=== PATIENT | female | born 1945 | race Caucasian/White ===

== ENCOUNTER 2018-12-08 11:51 | Inpatient (IN) | payer MEDICARE, OTHER, SELFPAY ==
[2018-11-26 12:33] VITALS: BMI 37.4
[2018-12-08] VITALS (12 sets, daily range): BP systolic 103–139; BP diastolic 57–78; PULSE 56–75; RESP 10–17; TEMP 36.2–36.7; O2SAT 90–100; BMI 37.4
--- NOTE | 2018-12-08 06:00 | DI.RAD.S_ITS ---
PROCEDURE: XR PELVIS 1-2V INDICATIONS: post operative total left hip TECHNIQUE: 1 view of the lower pelvis acquired. COMPARISON: None. FINDINGS: Bones: Patient is status post left hip arthroplasty, with hardware components in expected positions. The hip joint appears congruent. The visualized bony structures appear intact. Soft tissues: Overlying postoperative changes are noted. No suspicious soft tissue densities. IMPRESSION: Expected postsurgical change from left hip arthroplasty. Dictated by: Roxana Hernández MD, PhD on 12/08/2018 at 17:18 Approved by: Roxana Hernández MD, PhD on 12/08/2018 at 17:19
[2018-12-08] MEDS: PREGABALIN 75 MG CAPSULE PO (13:33)
[2018-12-08] MEDS: ACETAMINOPHEN 325 MG TABLET 975 MG PO (13:33)
--- NOTE | 2018-12-08 14:47 | PM.PREOP ---
Pre-operative Note Interval Note History & Physical reviewed/Exam performed by Physician: Yes Changes to H&P: No
[2018-12-08] MEDS: CLINDAMYCIN 900 MG/50 ML PIGGYBACK 50 MG IV ×2 (15:12→22:37)
--- NOTE | 2018-12-08 16:18 | SUR.OPER ---
Lateral on padded OR bed. Gel axillary roll. Arms secured on padded armboard with pillow supporting top arm. Padded hip positioner braces x4 - anterior and posterior chest and pelvis. Additional gel pad used anterior pelvis. Gel pad under bottom leg from knee to foot and secured with tape over sheet.
[2018-12-08] MEDS: ROPIVACAINE 0.5% PF 5 MG/ML 20ML AMP 60 ML INJ (16:28)
[2018-12-08] MEDS: KETOROLAC 30 MG/ML VIAL IV (16:29)
[2018-12-08] MEDS: MORPHINE 4 MG/ML INJ INJ (16:29)
[2018-12-08] MEDS: LACTATED RINGERS 1,000 ML 42 ML IV (16:31)
--- NOTE | 2018-12-08 16:45 | PM.OP.1 ---
Operative Date/Time/Diagnoses Date of procedure: 12/08/18 Time of procedure: 16:45 Pre-op diagnosis: Left hip degenerative joint disease Post-op diagnosis: same Procedure & Clinicians Procedure: Left total hip arthroplasty (CPT code 07507 with assistant professor of chemistry) Same procedure as scheduled: Yes Indications: Patient is an 72-year-old female with severe left hip DJD. The patient has pain with activities and at rest, limited ambulation and activity tolerance, difficulties with ADLs, and failure of conservative treatment. We have discussed the nature of condition, treatment options, risks and benefits, and patient elects to proceed with total hip arthroplasty and gives informed consent. Surgeon: Lazaro Archibald Log Chipper: Maksim Nicholson Anesthesia Type: General and Spinal Operative Notes Closure Type: primary Specimen(s): none sent Prosthetic devices, grafts, tissues, transplants, or devices: Acetabulum: Braswell and Nephew R3 acetabular component size 48 mm Femoral component: Braswell [employer] Nephew Anthology stem size 5 with standard offset Femoral head: 32 mm + 0 cobalt chrome Estimated Blood Loss (mL): 150 Blood products transfused: none Procedure in detail: After satisfaction induction of anesthetic, and administration of IV antibiotics, the patient was positioned in the lateral decubitus position with all bony prominences well padded and pelvic position secured using a hip power plant installer positioning device. Left hip and lower extremity prepped and draped in the usual sterile fashion, 1st dose of intravenous tranexamic acid was administered, then a longitudinal incision was created centered over the greater trochanter and carried sharply through the skin and subcutaneous tissues down to the fascia trev which was divided longitudinally and retracted with a Charnley retractor. External rotators visualize, cut, tagged, and retracted posteriorly, then the capsule was cut in a T-type fashion with the corners tagged and retracted. Hip was dislocated and femoral neck cut made according to preoperative templating. Acetabular retractors then placed, and the acetabular labrum and osteophytes were excised. The acetabulum was then sequentially reamed to 47 mm with an excellent circumferential ream and fit with the trial. The trial component was removed and a permanent size 48 mm Braswell and Nephew R3 acetabular component was selected, positioned, and impacted with satisfactory position and fixation achieved. Permanent liner was then inserted with the elevated lip directed posteriorly. Soft tissue then removed off the lateral femoral neck in the lateral neck was entered using a box osteotome. T-handled reamers placed down the canal followed by sequential broaching to 5 with the final broach left in place for trial reduction which demonstrated excellent leg length, range of motion, and stability characteristics with a 32 mm +0 trial ball. The trial and broach were removed, and a permanent size 5 Braswell and Nephew Anthology stem was selected and inserted with excellent position and fixation achieved. Another trial reduction yielded the above characteristics so the trial ball was exchanged for a permanent 32 mm +0 cobalt chrome ball. The hip was irrigated and reduced and excellent leg length range of motion and stability characteristics were achieved and maintained. Periarticular tissues were infiltrated with ropivacaine, Toradol, and morphine. The hip was copiously irrigated, and the capsule repaired with #2 Ethibond, and the piriformis was repaired back to the greater trochanter with the same. Fascia trev closed with interrupted #1 Ethibond sutures, and the subcutaneous tissues were closed in 2 layers of 0 Vicryl and 2 0 Vicryl. Skin was closed with laurie and sterile dressings applied. Second dose of tranexamic acid was administered intravenously, and the anesthetic was terminated. Condition: stable Disposition: PACU Plan for aftercare: Patient will be admitted to the acute care phan, and anticipate discharge on postop day 1 or 2 with follow-up in office in 10-14 days. Outpatient physical therapy will be arranged and patient will continue to observe posterior hip precautions. Patient will continue use of postoperative Lovenox for 10 days postop.
--- NOTE | 2018-12-08 16:49 | P.OP_ITS ---
Operative Date/Time/Diagnoses Date of procedure: 12/08/18 Time of procedure: 16:45 Pre-op diagnosis: Left hip degenerative joint disease Post-op diagnosis: same Procedure & Clinicians Procedure: Left total hip arthroplasty (CPT code 20035 with video library assistant) Same procedure as scheduled: Yes Indications: Patient is an 72-year-old female with severe left hip DJD. The patient has pain with activities and at rest, limited ambulation and activity tolerance, difficulties with ADLs, and failure of conservative treatment. We have discussed the nature of condition, treatment options, risks and benefits, and patient elects to proceed with total hip arthroplasty and gives informed consent. Surgeon: Lazaro Archibald Cylinder Devalver: Maksim Nicholson Anesthesia Type: General and Spinal Operative Notes Closure Type: primary Specimen(s): none sent Prosthetic devices, grafts, tissues, transplants, or devices: Acetabulum: Braswell and Nephew R3 acetabular component size 48 mm Femoral component: Braswell and Nephew Anthology stem size 5 with standard offset Femoral head: 32 mm + 0 cobalt chrome Estimated Blood Loss (mL): 150 Blood products transfused: none Procedure in detail: After satisfaction induction of anesthetic, and administration of IV antibiotics, the patient was positioned in the lateral decubitus position with all bony prominences well padded and pelvic position secured using a hip buckler and lacer positioning device. Left hip and lower extremity prepped and draped in the usual sterile fashion, 1st dose of intravenous tranexamic acid was administered, then a longitudinal incision was created centered over the greater trochanter and carried sharply through the skin and subcutaneous tissues down to the fascia trev which was divided longitudinally and retracted with a Charnley retractor. External rotators visualize, cut, tagged, and retracted posteriorly, then the capsule was cut in a T-type fashion with the corners tagged and retracted. Hip was dislocated and femoral neck cut made according to preoperative templating. Acetabular retractors then placed, and the acetabular labrum and osteophytes were excised. The acetabulum was then sequentially reamed to 47 mm with an excellent circumferential ream and fit with the trial. The trial component was removed and a permanent size 48 mm Braswell and Nephew R3 acetabular component was selected, positioned, and impacted with satisfactory position and fixation achieved. Permanent liner was then inserted with the elevated lip directed posteriorly. Soft tissue then removed off the lateral femoral neck in the lateral neck was entered using a box osteotome. T- handled reamers placed down the canal followed by sequential broaching to 5 with the final broach left in place for trial reduction which demonstrated excellent leg length, range of motion, and stability characteristics with a 32 mm +0 trial ball. The trial and broach were removed, and a permanent size 5 Braswell and Nephew Anthology stem was selected and inserted with excellent position and fixation achieved. Another trial reduction yielded the above characteristics so the trial ball was exchanged for a permanent 32 mm +0 cobalt chrome ball. The hip was irrigated and reduced and excellent leg length range of motion and stability characteristics were achieved and maintained. Periarticular tissues were infiltrated with ropivacaine, Toradol, and morphine. The hip was copiously irrigated, and the capsule repaired with #2 Ethibond, and the piriformis was repaired back to the greater trochanter with the same. Fascia trev closed with interrupted #1 Ethibond sutures, and the subcutaneous tissues were closed in 2 layers of 0 Vicryl and 2 0 Vicryl. Skin was closed with laurie and sterile dressings applied. Second dose of tranexamic acid was administered intravenously, and the anesthetic was terminated. Condition: stable Disposition: PACU Plan for aftercare: Patient will be admitted to the acute care phan, and anticipate discharge on postop day 1 or 2 with follow-up in office in 10-14 days. Outpatient physical therapy will be arranged and patient will continue to observe posterior hip precautions. Patient will continue use of postoperative Lovenox for 10 days postop.
[2018-12-08] MEDS: LACTATED RINGERS 1,000 ML 125 ML IV (18:40)
[2018-12-08] MEDS: DULOXETINE 30 MG CAPSULE PO (21:32)
[2018-12-08] MEDS: diphenhydrAMINE 25 MG TABLET PO (22:01)
--- NOTE | 2018-12-08 22:25 | PC.NURSE ---
KEL[facility] Shift pt arrived to floor at 1715. Denied pain all shift. O2 sat would drop to low 80's when sleeping, so we placed pt's CPAP on and o2 stats are mid-high 90's. pt has been AO and pleasant all shift. Receptive to care. Utilizing IS and deep breathing. Patient is SWIFTPATH and has had a back and knee surgery prior and denies anxiety or questions. was at bedside and has since left (Lives in [facility]). Called Dr. Richey to request Benadryl for generalized moderate itching. Patient up 2PA to BSC, voided 60ml, post-void bladder scan shows a max of 70ml remaining. Patient still denying pain. LR infusing at 125ml/hr, tolerating jello, crackers, and water.
--- NOTE | 2018-12-09 01:03 | PC.NURSE ---
2300- POD#0 total hip on L side, posterior approach. Bulky dressing in place, CDI, pulses palpable. Pt denies pain at this time; able to move toes. Moving in room 1PA w/ FWW. Pt uses a CPAP at night, needs to be reminded to keep this in place as his O2 sats drop to 88% without mask in place. LR running as ordered; AC/HS BG checks. 0200- New bag of NS hung, dressing CDI, pulses intact, pt denies pain. 0500- Pt up to BSC w/ 100 mL or urine out. Post void bladder scan completed, showed a max of 170mL. Will cont to monitor. 0630- Will cont IV fluids due to dec urine output.
[2018-12-09 01:59] VITALS: BP 121/61; PULSE 74; RESP 16; TEMP 36.7; O2SAT 94
[2018-12-09] MEDS: LACTATED RINGERS 1,000 ML 125 ML IV (03:39)
[2018-12-09 05:13] VITALS: BP 112/54; PULSE 68; RESP 16; TEMP 36.6; O2SAT 93
[2018-12-09 06:22] LABS: Hematocrit 31.7 % (36-46); Hemoglobin 10.7 g/dL (12.0-16.0)
[2018-12-09 07:45] VITALS: BP 115/56; PULSE 75; RESP 16; TEMP 36.9; O2SAT 94
[2018-12-09] MEDS: METOPROLOL ER 25 MG TABLET PO (09:02)
[2018-12-09] MEDS: METFORMIN XR 500 MG TABLET PO (09:02)
[2018-12-09] MEDS: DULOXETINE 30 MG CAPSULE PO (09:02)
[2018-12-09] MEDS: ENOXAPARIN 40 MG/0.4 ML SYRINGE SUBCUT (09:02)
[2018-12-09] MEDS: HYDROCODONE/ACET 5/325 TABLET 1 TAB PO ×2 (09:12→13:24)
--- NOTE | 2018-12-09 09:17 | PM.DS.1 ---
History of Present Illness Date Patient Seen: 12/09/18 Time Patient Seen: 09:18 Chief complaint: [id number] Left Total Hip Arthroplasty Narrative: Hospital day 2, postop day 1 following left posterior total hip arthroplasty by Dr. Archibald. Patient is a [facility] patient. doing well at this time. has not used any pain medication. She has not had physical therapy yet. She is scheduled to go to [facility] and [place]. She does have postoperative pain prescriptions at home. Discharge Providers Date of admission: 12/08/18 11:51 Discharge Date: 12/09/18 Primary care physician: Magdaleno Salguero MD Consults: 12/08/18 17:30 Consult to Discharge Planning Routine Comment: Consult to Physical Therapy Evaluate & Treat Comment: Physician Instructions: post op ANGEL protocol Consult to Respiratory Therapy Evaluate & Treat Comment: Physician Instructions: Evaluate and treat 12/08/18 18:32 Consult to Pastoral Services Routine Comment: pt is church Discharge provider: Alex León PA-C Summary Discharge Diagnosis: Status post left posterior total hip arthroplasty Hospital Course: Patient brought to hospital on 12/08/2018 for above-noted surgery. She remained stable postoperatively. Progressed with physical therapy. Ready for discharge home on postop day 1. Status at Discharge Cognitive/behavioral status at discharge: oriented Functional status at discharge: uses cane/walker Overall status at discharge: patient is progressing back to baseline Time Spent with Patient Less than 30 minutes Exam Vital Signs (past 8 hours): - 12/09/18 01:59 12/09/18 05:13 12/09/18 07:45 Temperature 98.0 F 97.9 F 98.4 F Pulse Rate 74 68 75 Respiratory Rate 16 16 16 Blood Pressure 121/61 112/54 L 115/56 L Pulse Oximetry 94 93 94 Oxygen Delivery Method CPAP Oxygen Flow Rate 0 Narrative Exam Narrative: Alert, oriented no acute distress sitting in chair. Legs. Bulky dressing to the left posterior hip is dry without drainage or inflammation. No calf pain or swelling. Pulses symmetrical. Objective Labs Result Diagrams: 12/09/18 05:56 Labs: Laboratory Results - last 24 hr 12/09/18 05:56 Hgb 10.7 L Hct 31.7 L Discharge Plan Discharge Plan Patient Disposition: Home Discharge comment: Discharge home today after cleared by PT. Change dressing to left hip to a CovRsite dressing. patient will use posterior total hip arthroplasty precautions x6 weeks postop. Patient will be on Lovenox injection for the 1st 10 days and then restart Eliquis. Discharge Med Rec/Prescriptions Prescriptions: New enoxaparin [Lovenox] 40 mg/0.4 mL Syringe 40 mg subcut DAILY Qty: 9 RF: 0 Continued triamterene-hydrochlorothiazid 37.5-25 mg Capsule 2 cap PO DAILY RF: 0 pramipexole 0.5 mg Tablet 0.5 mg PO BEDTIME RF: 0 metoprolol succinate 25 mg Tablet Extended Release 24 Hr 25 mg PO QAM RF: 0 duloxetine 30 mg Capsule,Delayed Release(Dr/Ec) 30 mg PO BID RF: 0 clobetasol 0.05 % Cream 1 applic TOPICAL SEEINSTR RF: 0 omeprazole 40 mg Capsule,Delayed Release(Dr/Ec) 40 mg PO DAILY RF: 0 metformin 500 mg Tablet Extended Release 24 Hr 500 mg PO QAM RF: 0 Discontinued Eliquis 5 mg Tablet 5 mg PO BID RF: 0 Follow up/Referrals: Magdaleno Salguero MD [Primary Care Provider] - Provider Discharge Instructions Diet: Diet as Tolerated Activity: Ambulate as tolerated. Use walker as needed. posterior total hip arthroplasty protocol x6 weeks postop. Skin/Wound/Dressing Care Report to your healthcare provider any signs of infection, such as:: chills, fever, night sweats, increased pain, unusual drainage and unusual redness Dressing: Keep CovRsite dressing in place until postop visit. Visit Report/Discharge Packet Instructions: DI for Hip Replacement Discharge Data Primary Care Provider: Magdaleno Salguero Attending Provider: Lazaro Archibald Admit Date/Time: 12/08/18 11:51
--- NOTE | 2018-12-09 10:15 | PT.IIE ---
Current Diagnoses Unilateral primary osteoarthritis, left hip (12/08/18) Surgery Performed Operation Date: 12/08/18 14:15 Actual Procedures p Total Hip Arthroplasty(Left) - Lazaro Archibald MD Surgical History (Last Updated 11/26/18 @ 13:15 by Gay Rodarte RN) History of arthroplasty of left shoulder (Acute) History of arthroplasty of right knee (Acute) History of lumbar spinal fusion (Acute ~08/2015) History of meniscectomy of left knee (Acute ~2002) Hx of cholecystectomy (Acute) Hx of toe surgery (Acute ~2017) Hx of tonsillectomy (Acute) Status post bilateral cataract extraction (Acute) Status post correction of deviated nasal septum (Acute) Medical History (Last Updated 11/26/18 @ 13:22 by Gay Rodarte RN) Anemia (Acute) Anxiety (Acute) Arthritis (Acute) Asthma (Acute) Chronic back pain (Acute) DJD (degenerative joint disease) (Acute) Depression (Acute) Diabetes (Acute ~2016) Eczema (Acute) Edema (Acute) GERD (gastroesophageal reflux disease) (Acute) HTN (hypertension) (Acute) Heart murmur (Acute) Hiatal hernia (Acute) History of cardioversion (Acute ~2017) Lichen sclerosus (Acute) Multiple lipomas (Acute) Paroxysmal atrial fibrillation (Acute) Psoriasis (Acute) RLS (restless legs syndrome) (Acute) Sleep apnea with use of continuous positive airway pressure (CPAP) (Acute) Physical Therapy Inpatient Evaluation/Re-Eval M1 PT/OT-IP Prior Functional Status Start: 12/09/18 11:20 Freq: NEEDED Status: Active Protocol: Document 12/09/18 10:15 AB (Rec: 12/09/18 11:33 AB [email or web address]) Medical Review Prior Functional Status Medical History Reviewed Yes Communication able to make needs known Mobility and Gait pt stated that she is mod I with all mobilities; uses FWW/ SPC depending on pain indoors; stated that she does not go out of the house often but she does, she uses a SPC Social History Household Members spouse Living Arrangements House Number of Floors (Floors) One Floor Home Environment Standard Height Toilet Walk in Shower Tub/Shower Home Equipment Front Wheel Walker Straight Cane Raised Toilet Seat Without Armrests Employment Status Retired M2 PT-IP Current Condition Start: 12/09/18 11:20 Freq: NEEDED Status: Active Protocol: Document 12/09/18 10:15 AB (Rec: 12/09/18 11:33 AB [email or web address]) Physical Therapy Current Condition Current Condition Evaluation Date 12/09/18 Treatment Diagnosis s/p L ANGEL posterior approach; difficulty in walking Onset Date 12/08/18 Precautions Posterior Hip Precautions No Hip Flexion > 90 degrees No Hip Internal Rotation No Hip Adduction Weight Bearing Status Weight Bearing Status Weight Bear as Tolerated M3 PT-IP Subjective Start: 12/09/18 11:20 Freq: NEEDED Status: Active Protocol: Document 12/09/18 10:15 AB (Rec: 12/09/18 11:33 AB [email or web address]) Subjective Physical Therapy Visit Type Type Initial Evaluation Visit Start Time 10:15 Visit Stop Time 11:15 Total Visit Minutes 60 Number of CAN CAPPER Visits 0 Physical Therapy Visit Comments Patient Comments pt agreeable to do PT Therapy Pain Assessment Pain When Pain Assessed At Rest Pain Present Pain Present Pain Reported Location Left Hip Intensity 4 Scale Used Numeric (1 - 10) Pain Management Techniques Apply Cold Re-positioning Timing of Activity with Medications M4 PT-IP Mobility and Gait Start: 12/09/18 11:20 Freq: NEEDED Status: Active Protocol: Document 12/09/18 10:15 AB (Rec: 12/09/18 11:33 AB [email or web address]) PT-Bed Mobility Assessment Supine to Sit Supine to Sit Standby Assistance 1 Person Assistance Sit to Supine Sit to Supine Standby Assistance 1 Person Assistance Scooting Scooting to Edge of Bed Standby Assistance Scooting Up and Down in Bed Standby Assistance PT-Transfer Assessment Sit to and From Stand Sit to and from Stand Standby Assistance 1 Person Assistance Use of Upper Extremities Equipment Transfer Assistive Device Gait Belt Front Wheeled Walker Orthotic/Prosthetic Devices or Brace: No Transfers Transfer Destination Bed Transfer Technique pt ambulated using FWW Transfer Ability Level of Assist Standby Assistance Use of Upper Extremities Gait Assessment Gait Gait Assistance Required: Standby Assistance Distance (Feet) 250 Able to Maintain Weight Bearing Status Yes During Gait Assistive Devices Assistive Device Gait Belt Front Wheeled Walker Orthotic/Prosthetic Devices or Brace: No Gait Deviations General Gait Pattern Antalgic Decreased Stride Length Decreased Feet Clearance Factors Limiting Gait Function Factors Limiting Gait Function Decreased Activity Tolerance Decreased Strength Pain Poor Balance Comments Gait Comments pt ambulated using FWW towards the stairs ~ 250 ft SBA and ambulated back to room using FWW 250 ft SBA. Stair Climbing Assessment Evaluation Level of Assist On Stairs Contact Guard Assistance 1 Person Assistance Devices Stair Climbing Assistive Devices Front Wheel Walker Technique/Endurance Stair Climbing Direction Ascend and Descend Stair Climbing Technique Step to Step Number of Steps Climbed 1 Query Text: Stair Climbing Set # Repetitions (reps) 2 Comments Stair Climbing Comments pt completed up/down platform step using FWW CGA. caregiver training conducted and spouse was able to assist pt safely. PT-Balance Assessment Sitting Balance and Reactions Static Sitting Balance Ability Good Dynamic Sitting Balance Ability Good Standing Balance and Reactions Static Standing Balance Ability Fair Dynamic Standing Balance Ability Fair Device Used FWW M5 PT-IP Objective Assessments Start: 12/09/18 11:20 Freq: NEEDED Status: Active Protocol: Document 12/09/18 10:15 AB (Rec: 12/09/18 11:33 AB [email or web address]) Orientation Orientation/Cognition Level of Alertness Alert Orientation Name Place Situation Language Function Ability No Deficits Noted Safety Awareness Understands Safety Issues Memory Description Short Term Impaired Gross Range of Motion Lower Extremity ROM Assessment Within Functional Limits Strength Lower Extremity Strength Assessment Left Impaired Knee 3+/5 Coordination Assessment Gross Coordination Gross Coordination WNL Sensation Assessment Sensation Gross Sensation WNL Muscle Tone Muscle Tone WNL Yes M6 PT-IP Treatment Start: 12/09/18 11:20 Freq: NEEDED Status: Active Protocol: Document 12/09/18 10:15 AB (Rec: 12/09/18 11:33 AB [email or web address]) Physical Therapy Treatment Education Education Provided Precautions Weight Bearing Status Post-Op Packet Safety M7 PT-IP Assessment and Plan Start: 12/09/18 11:20 Freq: NEEDED Status: Active Protocol: Document 12/09/18 10:15 AB (Rec: 12/09/18 11:33 AB [email or web address]) PT Summary Assessment and Plan Potential Rehabilitation Potential Good Status of Condition at Evaluation Stable Summary Impairments Pain ROM Strength Balance Coordination Sensation Tone Cognition Bed Mobility Transfers Gait Activity Tolerance Assessment Summary pt requiring SBA to CGA with mobility and plans to go home with spouse to assist her. pt may go home when medically stable. Goals Bed Mobility Goal Independent Transfer Goal Independent Front Wheeled Walker Gait Goal Independent Front Wheel Walker Gait Distance 300 Other Goals up/down 1 step using fWW mod I Days to Meet Goals 3 Frequency of Treatment Frequency Of Treatment Twice a Day Treatment Plan Physical Therapy Treatment Plan Bed Mobility Training Transfer Training Gait Training Therapeutic Exercise Balance Retraining Post Op Education Discharge Planning Hot or Cold Pack Neuromuscular Re-ed Coordination Retraining Manual Therapy Other Recommendations and Next Treatment ambulation, stairs, caregiver Focus training Recommendations To Nursing Amount of Assist Needed Standby Assistance Discharge Recommendations PT Discharge Recommendations Home with Assistance Outpatient PT
[2018-12-09 11:10] VITALS: BP 123/60; PULSE 69; RESP 16; TEMP 36.6; O2SAT 91
--- NOTE | 2018-12-09 13:12 | CM.DANOTE ---
DCP/continued: Reviewed chart. Patient is a 72yr old female admitted to [facility] for left ANGEL performed on 12-08-[address] Archibald. PCP is Dr. Salguero. Primary payor is 1)Medicare 2)Operating [employer]/Welfare and Pension. Met with patient explained CM/SW role. Patient alert and oriented sitting in recliner at time of visit. Patient reports that she has been seen by therapy today and plans to d/c home today. Patient has all needed DME and outpatient therapy arranged. Patient also has supportive spouse/Arthur whom can assist. No additional needs identified. P: Home today. MARIO Kimbrough Discharge Planning/Care Management CM Discharge Assessment Start: 12/09/18 13:10 Freq: Status: Active Protocol: Document 12/09/18 13:10 KJS (Rec: 12/09/18 13:12 KJS [id number]) Discharge Planning Assessment Assigned Cable Wirer MARIO Kimbrough Contact Information Arthur Friend (spouse) Advance Directives? Yes Advance Directives on File Yes History Provided By Patient Medical Record Prior Living Arrangements House Household Members spouse Type of transporation used prior to Drives own vehicle admit Independent with ADL's Yes Is patient alert and oriented? Yes Caregiver for Another No DME Already Rented / Owned FWW / Walker Other Comment CPAP at home. Patient/Family Preference OP PT Therapy Barriers to Discharge No Discharge Plan Home Transportation Arrangement Family to provide transport. Referrals Initiated None needed Whiteboard Updated in Patient Room with Yes name and ext. # of Cable Wirer Review Status In Process Next Review Type Continued Stay Review Pre-Anesthesia Assessment Start: 11/26/18 12:33 Freq: Status: Active Protocol: Document 11/26/18 12:33 CAB (Rec: 11/26/18 13:32 CAB [id number]) Pre-Anesthesia Assessment Patient Information Reviewed Via Phone Assessment Assessment Completed With Patient Diagnostic Results BMP/CMP CBC EKG Comment Outside labs/ECG 11/13/18 scanned to record Primary Care Provider Magdaleno Salguero Seen Specialist in Last 12 Months Yes Specialist Seen Rattling Machine Tender Orthopedist Primary Language Persian Thermo Cementing Folder Operator Required No Height 158.75 cm Weight 94.347 kg Body Mass Index (BMI) 37.4 Hearing Ability Normal Visual Assist Glasses Dentition Type Teeth, Natural Present Teeth, Missing Barriers to Learning None Other Aids Yes: CPAP Hx Anesthesia Reactions No Hx Family Anesthesia Reaction No Hx Malignant Hyperthermia No Hx Blood Transfusions No Anesthesia Review Requested No Land Title Examiner No alcohol intake former Smoking Status Never smoker Substance Use Type does not use Pain Present Pain Reported Musculoskeletal Symptoms Abnormal Gait Back Pain Difficulty Walking Joint Pain Limited Range of Motion Muscle Cramps Muscle Spasms Muscle Weakness Prosthesis or Orthotic Device Cane Mental Status Oriented to own ability Is patient on oxygen? No Does patient have WILLIS/SOB No Hx Sleep Apnea Yes CPAP/BIPAP use prescribed and used routinely Will Bring CPAP/BIPAP DOS Yes Currently Taking a Beta Tiara Yes: Metoprolol Can You Climb a Flight of Stairs Without Yes SOB Hx Chest Pain No Hx SOB No Hx Syncope or Dizziness No Anti-Coagulant Therapy Yes: Eliquis-Pt advised to hold 2 days prior to surgery per [facility] Has a Plush Cutter No Cardiac Testing Yes: Cardiac testing r/t paroxysmal afib 2017 Hx Pacemaker/ICD No Pacemaker Rep Required? No Cardiac Clearance Received Not Applicable Diet Type At Home Regular Diabetes Yes: Pt checks blood sugar every morning Patient No Lactating No Hx Drug Resistant Organism No Presence of External or Internal Medical Yes: Left breast marker, CPAP, Devices bilateral lens implants, rt knee prosthesis Have you traveled outside the [facility] States in the last 30 days? Marital Status Lives With spouse Prior Living Arrangements House Number of Floors (Floors) One Floor Support System Child/Children Spouse Does the Patient Have Assistance After Yes Surgery Patient Discharge Plan Description Return Home Comment Pt advised overnight length of stay per surgeon's office Feels Safe in Current Environment Yes Been Physically Hurt or Threatened By a No Person in Current Environment Do you have thoughts of harming yourself None or others? Are you currently considering suicide? No Do you have a plan to hurt yourself or No Plan others? Do You Have Any Spiritual Beliefs That No May Affect Your HC Choices? Do You Have Any Cultural Practices That No May Affect Your HC Choices? Spiritual Referral In-House Cork Sorter Comment Religious Who Can We Speak to About Patient's Care Family, friends Identifying Code for Release of Patient Declines to issue Information Health Care Proxy/Next of Kin Arthur () Health Care Proxy Emergency Contact Name Isra (son) Emergency Contact Advance Directives? Yes Advance Directives on File Yes PAC Instructions Bring CPAP/BIPAP Do not shave/clip surgical site Durable medical equipment Medications to take/avoid Nasal antibiotic No ETOH/petroleum product on skin DOS NPO Post-op transportation Pre-surgical wash Sturdy shoes/comfortable clothes Do not bring valuables and remove jewelry Comment Surg # given to pt for any ques/concerns for blood sugars dos
--- NOTE | 2018-12-09 14:13 | PC.NURSE ---
Pt instructed in Lovenox injection technique and was able to give self injection without difficulty.
--- NOTE | 2018-12-09 15:51 | PC.NURSE ---
Jessa shift note: Discharge instructions given to patient and , both verbalized understanding of instructions. Discussed importance of F/U with PMD, new medication (Lovenox), including side effects. Patient verbalized posterior hip precautions as instructed by Physical therapy. IV discontinued and dressing previously changed. Discharge home via private vehicle.
== END 2018-12-09 16:00 | disposition home or self-care (01) | DRG 470 ==
PROVIDERS: Admitting Provider Orthopaedic Surgery; Family Provider Internal Medicine; PCP Internal Medicine; Visit Provider Orthopaedic Surgery
PROC: 0SRB0JZ Replacement of Left Hip Joint with Synthetic Substitute, Open Approach (ICD-10-PCS; CPT 27130; principal; 2018-12-08 14:15)
DX: M16.12 Unilateral primary osteoarthritis, left hip (principal); G47.33 Obstructive sleep apnea (adult) (pediatric); E66.9 Obesity, unspecified; E11.9 Type 2 diabetes mellitus without complications; F32.9 Major depressive disorder, single episode, unspecified; I48.91 Unspecified atrial fibrillation; Z79.01 Long term (current) use of anticoagulants; Z68.37 Body mass index [BMI] 37.0-37.9, adult; Z79.84 Long term (current) use of oral hypoglycemic drugs
CPT/HCPCS: 36415; 72170; 82962; 85014; 85018; 97116; 97161; 97530; C1776; J1650; J1885; J2250; J2270; J2274; J2405; J2704; J2795; J3010

== ENCOUNTER → 2020-01-08 08:50 | Outpatient (CLI) | payer MEDICARE, OTHER, SELFPAY ==
[2020-01-06 13:02] VITALS: BMI 37.4
[2020-01-08 22:42] LABS: COVID19 Sendout Not Detected (Not Detect)
== END ==
PROVIDERS: Family Provider Internal Medicine; PCP Internal Medicine; Visit Provider Registered Nurse
DX: Z01.812 Encounter for preprocedural laboratory examination (principal)
CPT/HCPCS: 87635

== ENCOUNTER 2020-01-11 08:49 | Day surgery (SDC) | payer MEDICARE, OTHER, SELFPAY ==
[2020-01-06 13:02] VITALS: BMI 37.4
[2020-01-06 13:55] VITALS: BMI 37.7
[2020-01-11] VITALS (14 sets, daily range): BP systolic 93–127; BP diastolic 44–70; PULSE 61–92; RESP 15–20; TEMP 36.4–37.3; O2SAT 92–100; BMI 35.5
--- NOTE | 2020-01-11 | DI.RAD.S_ITS ---
PROCEDURE: XR KNEE LT 1TO2V INDICATIONS: LEFT TOTAL KNEE TECHNIQUE: 2 view(s) of the knee acquired. COMPARISON: None. FINDINGS: Bones: Patient is status post knee joint arthroplasty. Hardware components are in expected positions. Visualized bony structures are intact. Soft tissues: Overlying postoperative changes are noted. IMPRESSION: Post left total knee arthroplasty changes with anatomic left knee alignment. Dictated by: José Miguel Langford M.D. on 01/11/2020 at 13:05 Approved by: José Miguel Langford M.D. on 01/11/2020 at 13:06
[2020-01-11] MEDS: PREGABALIN 75 MG CAPSULE PO (09:26)
[2020-01-11] MEDS: LACTATED RINGERS 1,000 ML 42 ML IV ×2 (09:26→11:57)
[2020-01-11] MEDS: CELECOXIB 200 MG CAPSULE PO (09:26)
[2020-01-11] MEDS: ACETAMINOPHEN 325 MG TABLET 975 MG PO (09:26)
[2020-01-11] MEDS: VANCOMYCIN 1,000 MG/200 ML PIGGYBACK 200 MG IV (09:48)
--- NOTE | 2020-01-11 10:22 | PM.PREOP ---
Pre-operative Note COVID-19 COVID-19 status: Negative Result date/Date tested (Pos, Neg/Pending): 01/08/20 Interval Note History & Physical reviewed/Exam performed by Physician: Yes Changes to H&P: No
--- NOTE | 2020-01-11 10:22 | PM.OP.1 ---
Operative Date/Time/Diagnoses Date of procedure: 01/11/20 Time of procedure: 12:30 Pre-op diagnosis: Left total knee Post-op diagnosis: same Procedure & Clinicians Procedure: Left total knee replacement Same procedure as scheduled: Yes Indications: The patient has had progressively worsening left knee pain with radiographic changes consistent with arthritis. Non-operative management has failed and the patient has requested total knee replacement. The risks, benefits and alternatives to surgery were discussed with the patient prior to proceeding. Risks discussed included, but were not limited to, failure to relieve pain, stiffness, infection, nerve damage, deep venous thrombosis, pulmonary embolism, stroke, coma, heart attack, permanent paralysis and , as well as the potential need for eventual revision of the prosthetic. Surgeon: Jd Vera Rvda Master Certified Rv Technician: Marlyn Braswell Click Yes if Unassisted: No Anesthesia Type: General, Spinal and Local Operative Notes Findings: Tricompartmental osteoarthritis with relative sparing of the lateral compartment. Closure Type: primary Specimen(s): none sent Prosthetic devices, grafts, tissues, transplants, or devices: Implants used in this procedure were manufactured by the [employer] and [employer] and included the BCS II Journey total knee replacement with a size 5 left cobalt chromium femoral component, a size 4 left non porous tibial base plate, a size 4 9 mm thick tibial insert and a 32 mm oval Christine II patella. Applied: implant(s) Estimated Blood Loss (mL): 25 Blood products transfused: none Tourniquet time (min): 52 Procedure in detail: The patient was seen in the pre-operative area, where the left knee was identified as the operative site and this was marked with my initials. The patient received pre-operative antibiotics, and was taken to the operating room and placed on the operative table in the supine position. After satisfactory anesthesia, a full time babysitter out was performed. The left leg was encircled with a tourniquet about the proximal thigh, and the leg was prepared from the toes to the tourniquet with ChloroPrep in the usual fashion and draped through sterile drapes. The leg was elevated and exsanguinated with Eschmark bandage and the tourniquet inflated to 250 mmHg pressure. The knee was approached through an approximately 18 cm incision centered over the patella and carried into the knee through a medial parapatellar arthrotomy. The anterior osteophytes and soft tissues were removed. The rotational landmarks of Selene's line and the transepicondylar axis were marked on the femur with electrocautery, and intramedullary guide holes for the femur and tibia were created. The distal femoral cut was made in 6 degrees of valgus using the intramedullary guide at the primary cut setting. The proximal tibial cut was then made using the intramedullary guide, taking 9 mm of bone off the less involved side. The extension gap was checked and the rotation of the femoral component confirmed with the gap balancing blocks. The anterior, posterior and chamfer cuts were then made. The posterior osteophytes and soft tissues were then removed. The posterior capsule was injected with part of a mixture of 60 ml 0.25% Marcaine mixed with 20 ml Exparel and 4 mg of morphine for post-operative pain control. The remainder of this mixture was injected into the capsule and subcutaneous tissues during cement curing. The tibia was prepared with the rotation set by an extra medullary guide. Trial tibial and femoral components were then placed and the intercondylar notch cut through the femoral trial. Range of motion was 0-135 degrees, with good stability throughout the range. The patella was then cut to accommodate the patellar prosthetic. There was no need for a lateral release. The trials were then removed, and the femoral hole plugged with a bone plug. The bone was prepared with pulsatile lavage, and dried with a sponge. Cement was applied and the final prosthetics placed. Excess cement was removed during and after cement curing. After confirming there was no extruded cement posteriorly, the final tibial insert was placed. The knee was copiously irrigated and the tourniquet deflated. Hemostasis was obtained. The capsule was closed with interrupted # 2 polyester sutures. The subcutaneous layer was closed with 3-0 Vicryl, and the skin with a running 3-0 V-Lock suture and Dermabond. An Aquacel Ag dressing was applied and the patient was taken to recovery having tolerated the procedure well. Complications: none Post-operative Condition: stable Disposition: PACU Plan for aftercare: The patient will be maintained on a standard total knee replacement protocol with weight bearing as tolerated. The patient will receive aspirin and sequential compression devices for DVT prophylaxis. The patient will be discharged home when safe for the home environment.
[2020-01-11] MEDS: TRANEXAMIC ACID 1,000 MG VIAL 1000 MG INJ ×3 (11:05→12:25)
--- NOTE | 2020-01-11 11:08 | PC.NURSE ---
Day shift: Pt not on AC unit at this time.
--- NOTE | 2020-01-11 11:24 | SUR.OPER ---
Supine on padded OR bed. Pillow under head, arms secured on padded armboards <90 degree abduction. Safety belt across torso. Non-operative leg secured with tape over blanket over lower leg. Operative leg secured in DeMayo/Jose Enrique positioner. Foam padded brace at thigh of operative leg.
[2020-01-11] MEDS: BUPIVACAINE 0.25% W/ EPI 30 ML VIAL 60 ML INJ (11:29)
[2020-01-11] MEDS: BUPIVACAINE LIPOSOME 266 MG/20 ML VIAL INJ (11:30)
--- NOTE | 2020-01-11 12:53 | SUR.PHASEI ---
Patient responsive to verbal stimulus and denies pain at this time. Taking ice chips without difficulty.
--- NOTE | 2020-01-11 13:23 | PC.NURSE ---
Day shift: Pt on AC unit at approx 1323 from PACU.
[2020-01-11] MEDS: LACTATED RINGERS 1,000 ML 100 ML IV ×2 (13:59→23:28)
[2020-01-11] MEDS: ACETAMINOPHEN 325 MG TABLET 650 MG PO ×2 (15:37→20:43)
--- NOTE | 2020-01-11 16:14 | PC.NURSE ---
These are the post-op vitals that were done at 1325 by pervious shift. Did not see them charted and wanted them to be known.
--- NOTE | 2020-01-11 16:41 | PT.IIE ---
Current Diagnoses Unilateral primary osteoarthritis, left knee (01/11/20) Surgery Performed Operation Date: 01/11/20 10:45 Actual Procedures p Total Knee Arthroplasty(Left) - Jd Vera MD Surgical History (Last Updated 01/06/20 @ 14:05 by Gay Rodarte RN) History of arthroplasty of left shoulder (Acute) History of arthroplasty of right knee (Acute) History of lumbar spinal fusion (Acute ~08/2015) History of meniscectomy of left knee (Acute ~2002) History of total left hip arthroplasty (Acute 12/08/18) Hx of cholecystectomy (Acute) Hx of toe surgery (Acute ~2016) Hx of tonsillectomy (Acute) Status post bilateral cataract extraction (Acute) Status post correction of deviated nasal septum (Acute) Medical History (Last Updated 11/26/18 @ 13:22 by Gay Rodarte RN) Anemia (Acute) Anxiety (Acute) Arthritis (Acute) Asthma (Acute) Chronic back pain (Acute) Depression (Acute) Diabetes (Acute ~2016) DJD (degenerative joint disease) (Acute) Eczema (Acute) Edema (Acute) GERD (gastroesophageal reflux disease) (Acute) Heart murmur (Acute) Hiatal hernia (Acute) History of cardioversion (Acute ~2017) HTN (hypertension) (Acute) Lichen sclerosus (Acute) Multiple lipomas (Acute) Paroxysmal atrial fibrillation (Acute) Psoriasis (Acute) RLS (restless legs syndrome) (Acute) Sleep apnea with use of continuous positive airway pressure (CPAP) (Acute) Physical Therapy Inpatient Evaluation/Re-Eval M1 PT/OT-IP Prior Functional Status Start: 01/11/20 15:43 Freq: NEEDED Status: Active Protocol: Document 01/11/20 16:26 AW (Rec: 01/11/20 16:41 AW [id number]) Medical Review Prior Functional Status Medical History Reviewed Yes Communication WNL Mobility and Gait Pt is an independent home and community ambulator at baseline. She states she could walk up to 1/2 mile without AD Activities of Daily Living and IADL's Independent Prior Functional Level (Other details) Pt drives and manages her own medications. She reports no falls in the past year. Social History Household Members spouse Living Arrangements House Number of Floors (Floors) One Floor Number of Stairs To Enter/Railing? 2 [place] without railing. Pt states she can touch the wall on her left side as she ascends for support Home Environment High Toilet,Tub/Shower Home Equipment Front Wheel Walker,Four Wheel Walker,Straight Cane,Raised Toilet Seat Without Armrests, Shower Seat without Backrest, Hand Held Shower,Lye Peel Operator,Sock Aid,Hospital Bed Additional Social History Comment Pt lives with her spouse, Arthur . Her son and his family live in the same neighborhood and are able to check on her frequently. M2 PT-IP Current Condition Start: 01/11/20 15:43 Freq: NEEDED Status: Active Protocol: Document 01/11/20 16:26 AW (Rec: 01/11/20 16:41 AW [id number]) Physical Therapy Current Condition Current Condition Evaluation Date 01/11/20 Treatment Diagnosis s/p L TKA, difficulty in walking Onset Date 01/11/20 M3 PT-IP Subjective Start: 01/11/20 15:43 Freq: NEEDED Status: Active Protocol: Document 01/11/20 16:26 AW (Rec: 01/11/20 16:41 AW [id number]) Subjective Physical Therapy Visit Type Type Initial Evaluation Visit Start Time 15:49 Visit Stop Time 16:19 Total Visit Minutes 30 Physical Therapy Visit Comments Patient Comments Pt willing to participate with PT Patient Goals Pt hopes to discharge home with family support Therapy Pain Assessment Pain When Pain Assessed During Mobility Pain Present Pain Present Pain Reported Location left knee Scale Used no pain at rest; increased with mobility Pain Management Techniques Apply Cold,Timing of Activity with Medications M4 PT-IP Mobility and Gait Start: 01/11/20 15:43 Freq: NEEDED Status: Active Protocol: Document 01/11/20 16:26 AW (Rec: 01/11/20 16:41 AW [id number]) PT-Bed Mobility Assessment Supine to Sit Supine to Sit Standby Assistance,Head of Bed Elevated,Bedrails Scooting Scooting to Edge of Bed Standby Assistance PT-Transfer Assessment Sit to and From Stand Sit to and from Stand Contact Guard Assistance, Minimal Assistance Equipment Transfer Assistive Device Gait Belt,Front Wheeled Walker Orthotic/Prosthetic Devices or Brace: No Transfers Transfer Destination Chair,Bedside Commode Transfer Technique Stand Step Pivot Transfer Ability Level of Assist Contact Guard Assistance Comments Mobility Comments Pt completed bed mobility with HOB elevated ~20 degrees using bed rails SBA. She stood from bed in lowest position CGA using FWW and then transferred CGA to the [facility] via step pivot transfer. Pt was unable to void so stood again with FWW requiring min assist from [facility] (lower than bed) and transferred with FWW CGA to chair. Pt was positioned in the chair with call light and all needs within reach. Pt verbalized understanding to use call light for all mobility needs. SBP stable 98-114 throughout session Gait Assessment Gait Gait Assistance Required: Contact Guard Assist Distance (Feet) 3 Able to Maintain Weight Bearing Status Yes During Gait Assistive Devices Assistive Device Gait Belt,Front Wheeled Walker Orthotic/Prosthetic Devices or Brace: No Gait Deviations General Gait Pattern Antalgic,Decreased Stride Length,Decreased Feet Clearance,Flexed Trunk,Step-to Gait Factors Limiting Gait Function Factors Limiting Gait Function Decreased Activity Tolerance, Decreased Strength,Limited Range of Motion,Pain,Poor Balance Comments Gait Comments See mobility comments Stair Climbing Assessment Comments Stair Climbing Comments Not assessed. Pt will need to do stair training prior to discharge. PT-Balance Assessment Sitting Balance and Reactions Static Sitting Balance Ability Normal Dynamic Sitting Balance Ability Normal Standing Balance and Reactions Static Standing Balance Ability Good Dynamic Standing Balance Ability Good Device Used FWW M5 PT-IP Objective Assessments Start: 01/11/20 15:43 Freq: NEEDED Status: Active Protocol: Document 01/11/20 16:26 AW (Rec: 01/11/20 16:41 AW [id number]) Orientation Orientation/Cognition Level of Alertness Alert Orientation Name,Day of Week,Place, Situation Language Function Ability No Deficits Noted Safety Awareness Understands Safety Issues Memory Description No Deficits Noted Comments Pt was sleepy but easily rousable and easily oriented to task. Gross Range of Motion Lower Extremity ROM Assessment Left Impaired Strength Lower Extremity Strength Assessment Left Impaired Comments Strength Comments RLE grossly 4/5; LLE 3/5 Coordination Assessment Gross Coordination Gross Coordination WNL Sensation Assessment Sensation Gross Sensation Left LE Impaired Comments Sensation Comments Pt reports chronic left anterior shank numbness Muscle Tone Muscle Tone WNL Yes M6 PT-IP Treatment Start: 01/11/20 15:43 Freq: NEEDED Status: Active Protocol: Document 01/11/20 16:26 AW (Rec: 01/11/20 16:41 AW [id number]) Physical Therapy Treatment Exercises Exercises Ankle Pumps,Quad Sets,Heel Slides,Passive Knee Extension Hang Education Education Provided Precautions,Weight Bearing Status,Post-Op Packet,Safety Other Treatments Other Treatment Performed Provided education on role of PT, plan of care, weightbearing status, and safe use of FWW. M7 PT-IP Assessment and Plan Start: 01/11/20 15:43 Freq: NEEDED Status: Active Protocol: Document 01/11/20 16:26 AW (Rec: 01/11/20 16:41 AW [id number]) PT Summary Assessment and Plan Potential Rehabilitation Potential Excellent Status of Condition at Evaluation Evolving Summary Impairments Pain,ROM,Strength,Balance, Sensation,Bed Mobility, Transfers,Gait,Activity Tolerance Assessment Summary Sasha is a 74 yo woman seen for PT evaluation on POD0 following L TKA. She has history of R TKA in 2013, L ANGEL, and TLIF. At baseline, she is an independent community ambulator up to 1/2 mile. On evaluation, she required CGA to min assist with transfers and ambulation with FWW. PT anticipates she will meet the functional goals of this plan of care and be safe to discharge home with family assist and outpatient PT once medically cleared. Goals Bed Mobility Goal Independent Transfer Goal Standby Assistance,Front Wheeled Walker Gait Goal Standby Assistance,Front Wheel Walker Gait Distance 200 Other Goals up/down 2 steps with unilateral rail or FACILITIES MAINTENANCE ASSISTANT CGA Days to Meet Goals 3 Frequency of Treatment Frequency Of Treatment Twice a Day Treatment Plan Physical Therapy Treatment Plan Bed Mobility Training,Transfer Training,Gait Training, Therapeutic Exercise,Balance Retraining,Post Op Education, Discharge Planning,Hot or Cold Pack Other Recommendations and Next Treatment transfers, progress gait Focus distance, ther ex, assess safety on stairs when appropriate Recommendations To Nursing Amount of Assist Needed 1 Person Assist Discharge Recommendations PT Discharge Recommendations Home with Assistance, Outpatient PT Transportation Needs at Discharge Private Vehicle
[2020-01-11] MEDS: PRAMIPEXOLE 0.25 MG TABLET 0.5 MG PO (20:44)
[2020-01-11] MEDS: APIXABAN 5 MG TABLET PO (20:44)
[2020-01-11] MEDS: DULOXETINE 30 MG CAPSULE PO (20:44)
[2020-01-11] MEDS: DOCUSATE 100 MG CAPSULE PO (20:44)
[2020-01-11] MEDS: OXYCODONE IR 5 MG TABLET PO (23:45)
[2020-01-12 00:21] VITALS: BP 112/55; PULSE 65; RESP 18; TEMP 36.3; O2SAT 92
--- NOTE | 2020-01-12 01:05 | PC.NURSE ---
Addendum entered by Anahi Love R.N. 01/12/20 06:05: [place] to [facility] [place] 1 assist + walker x 2 this morning and has voided 500cc total. Complained of 5/10 knee pain with standing but at rest currently states pain is 2/10 after receiving Oxycodone. Ice pack applied for comfort. Original Note: Patient seen and assessed at 2350. Is alert and oriented. Breath sounds CTA with RA sat of 92%; has home CPAP for sleep. HRR. Denies nausea. BT present and is passing flatus. Voiding without dysuria, frequency or urgency. Able to move self in bed and gets up with 1 assist + walker. Aquacel dressing covered with pushpa wrap to left knee is CDI. CMS intact bilaterally. Wearing bilateral calf SCD's. Complained of 5/10 knee pain and medicated with Oxycodone and is currently asleep. Fall risk score is high and bed alarm is activated.
[2020-01-12] MEDS: OXYCODONE IR 5 MG TABLET PO (04:51)
[2020-01-12 05:01] VITALS: BP 133/64; PULSE 72; RESP 16; TEMP 36.7; O2SAT 94
[2020-01-12] MEDS: PANTOPRAZOLE 40 MG TABLET PO (06:02)
[2020-01-12 06:20] LABS: Hematocrit 31.2 % (36-46); Hemoglobin 10.2 g/dL (12.0-16.0)
--- NOTE | 2020-01-12 07:38 | PM.DS.1 ---
History of Present Illness History of Present Illness Date Patient Seen: 01/12/20 Time Patient Seen: 07:39 Chief complaint: [id number] LEFT TKA *OPB* Narrative: The history and physical are contained in the chart previously completed note. Please refer to that note for this information. Discharge Providers Provider Discharge Date: 01/12/20 Primary care physician: Magdaleno Salguero MD Consults: 01/08/20 07:53 Consult to Anesthesiology Routine Comment: Consulting Provider: Anesthesiologist Reason for consultation: Regional block for post operative pain control 01/11/20 09:25 Consult to Respiratory Therapy Evaluate & Treat Comment: Physician Instructions: Evaluate and treat 01/11/20 13:23 Consult to Discharge Planning Routine Comment: Consult to Physical Therapy Evaluate & Treat Comment: Physician Instructions: postop TKA protocol Discharge provider: Jd Vera MD Summary Hospital Course Discharge Diagnosis: 1. Left knee osteoarthritis 2. Post hemorrhagic anemia Hospital Course: The patient was admitted to the hospital and taken directly to the operating room on January 11, 2020. She underwent a left total knee replacement without difficulty. On postoperative day 1 she was comfortable and had made several trips to the bathroom on her own overnight. It is anticipated she will be ready for discharge later today after seeing physical therapy. Status at Discharge Cognitive/behavioral status at discharge: oriented Functional status at discharge: uses cane/walker Overall status at discharge: patient is progressing back to baseline Time Spent with Patient Time spent: Less than 30 minutes Exam Vital Signs (past 8 hours): - 01/12/20 00:21 01/12/20 05:01 Temperature 97.4 F L 98.1 F Pulse Rate 65 72 Respiratory Rate 18 16 Blood Pressure 112/55 L 133/64 Pulse Oximetry 92 94 Oxygen Delivery Method Room Air Oxygen Flow Rate 0 Narrative Exam Narrative: Left knee dressing is intact without drainage. Calf is soft. Light touch and motion are intact in the left lower extremity. Objective Labs Result Diagrams: 01/12/20 05:39 Labs: Laboratory Results - last 24 hr 01/12/20 05:39 Hgb 10.2 L Hct 31.2 L Discharge Plan Discharge Plan Patient Disposition: Home Discharge Med Rec/Prescriptions Prescriptions: New acetaminophen 325 mg Tablet 650 mg PO TID 30 Days Qty: 180 RF: 0 oxycodone 5 mg Tablet 5 mg PO Q4H PRN (Reason: Pain, Moderate (4-6)) Qty: 40 RF: 0 Continued triamterene-hydrochlorothiazid 37.5-25 mg Capsule 2 cap PO DAILY RF: 0 pramipexole 0.5 mg Tablet 0.5 mg PO BEDTIME RF: 0 metoprolol succinate 25 mg Tablet Extended Release 24 Hr 25 mg PO QAM RF: 0 duloxetine 30 mg Capsule,Delayed Release(Dr/Ec) 30 mg PO BID RF: 0 clobetasol 0.05 % Cream 1 applic TOPICAL SEEINSTR RF: 0 omeprazole 40 mg Capsule,Delayed Release(Dr/Ec) 40 mg PO DAILY RF: 0 metformin 500 mg Tablet Extended Release 24 Hr 500 mg PO QAM RF: 0 losartan 25 mg Tablet 25 mg PO DAILY RF: 0 Eliquis 5 mg Tablet 5 mg PO BID RF: 0 Follow up/Referrals: Magdaleno Salguero MD [Primary Care Provider] - Jd Vera MD [Physician] - 2 Weeks Discharge Orders: Discharge (Order); Ordered 01/12/20 Ordered By: Jd Vera Provider Discharge Instructions Diet: Diet as Tolerated and Carb-consistent/Diabetic Activity: You may bear weight as tolerated on your left leg. Keep your leg elevated above your heart when at rest. Cold/Heat Therapy: Apply ice to your left knee for 15 minutes of every hour as needed for pain control. Skin/Wound/Dressing Care Report to your healthcare provider any signs of infection, such as:: chills, fever, night sweats, increased pain, unusual drainage and unusual redness Dressing: You may remove your Tan wrap in 3 days after surgery. Leave the deeper dressing in place. You may shower with the deeper dressing on. If the central strip of the deeper dressing becomes saturated with either water or blood please call the office to have it evaluated. Visit Report/Discharge Packet Instructions: DI for Knee Replacement Stand Alone Forms: Surgery Discharge Discharge Data Primary Care Provider: Magdaleno Salguero Attending Provider: Jd Vera Quality VTE Deep Vein Thrombosis/Pulmonary Embolism Present on Admission: No
[2020-01-12] MEDS: INSULIN ASPART 100 UNIT/ML INSULN PEN SUBCUT (08:25)
[2020-01-12 08:30] VITALS: BP 126/63
[2020-01-12] MEDS: LOSARTAN 25 MG TABLET PO (08:30)
[2020-01-12] MEDS: DULOXETINE 30 MG CAPSULE PO (08:30)
[2020-01-12] MEDS: APIXABAN 5 MG TABLET PO (08:30)
[2020-01-12] MEDS: ACETAMINOPHEN 325 MG TABLET 650 MG PO (08:30)
[2020-01-12] MEDS: DOCUSATE 100 MG CAPSULE PO (08:30)
[2020-01-12] MEDS: METFORMIN XR 500 MG TABLET PO (08:31)
[2020-01-12] MEDS: METOPROLOL ER 25 MG TABLET PO (08:31)
[2020-01-12] MEDS: TRIAMTERENE/HCTZ 37.5/25 TABLET 2 CAP PO (08:31)
[2020-01-12] MEDS: OXYCODONE IR 10 MG TABLET PO (08:32)
[2020-01-12 09:00] VITALS: BP 126/63; PULSE 80; RESP 20; TEMP 37.1; O2SAT 95
--- NOTE | 2020-01-12 09:36 | PC.NURSE ---
Addendum entered by Jess Tarango R.N. 01/12/20 14:32: Patient given discharge instructions with at bedside. Patient verbalized understanding to schedule follow up, wound care, s/s of infection and prescriptions. Patient's IV removed, patient tolerated well. Patient d/c in wheelchair. Original Note: Patient up to BSC, 1 person assist with FWW, pt is voiding. Up to chair this AM for breakfast. Tolerated well. Aquacel with WOLFGANG bandage on left knee is CDI, patient denies calf pain, numbness or tingling, pulses equal bilaterally. Patient saline locked, taking PO fluids well. Call light in reach.
--- NOTE | 2020-01-12 09:44 | PT.IPTN ---
Current Diagnoses Unilateral primary osteoarthritis, left knee (01/11/20) Surgery Performed Operation Date: 01/11/20 10:45 Actual Procedures p Total Knee Arthroplasty(Left) - Jd Vera MD Physical Therapy Treatment Note M2 PT-IP Current Condition Start: 01/11/20 15:43 Freq: NEEDED Status: Active Protocol: Document 01/11/20 16:26 AW (Rec: 01/11/20 16:41 AW [id number]) Physical Therapy Current Condition Current Condition Evaluation Date 01/11/20 Treatment Diagnosis s/p L TKA, difficulty in walking Onset Date 01/11/20 M3 PT-IP Subjective Start: 01/11/20 15:43 Freq: NEEDED Status: Active Protocol: Document 01/12/20 09:03 CLB (Rec: 01/12/20 10:01 CLB [id number]) Subjective Physical Therapy Visit Type Type Treatment Note Visit Start Time 09:03 Visit Stop Time 09:44 Total Visit Minutes 41 Number of COMPTOMETER OPERATOR Visits 1 Physical Therapy Visit Comments Patient Comments Pt willing to participate with PT Patient Goals Pt hopes to discharge home with family support Therapy Pain Assessment Pain When Pain Assessed During Mobility Pain Present Pain Present Pain Reported Location left knee Scale Used no pain at rest; increased with mobility Pain Management Techniques Apply Cold,Timing of Activity with Medications M4 PT-IP Mobility and Gait Start: 01/11/20 15:43 Freq: NEEDED Status: Active Protocol: Document 01/12/20 09:03 CLB (Rec: 01/12/20 10:01 CLB [id number]) PT-Bed Mobility Assessment Supine to Sit Supine to Sit Standby Assistance,Head of Bed Elevated Sit to Supine Sit to Supine Standby Assistance Scooting Scooting to Edge of Bed Standby Assistance PT-Transfer Assessment Sit to and From Stand Sit to and from Stand Standby Assistance,Use of Upper Extremities Equipment Transfer Assistive Device Gait Belt,Front Wheeled Walker Orthotic/Prosthetic Devices or Brace: No Transfers Transfer Destination Bed,Chair Transfer Technique Stand Step Pivot Transfer Ability Level of Assist Standby Assistance Comments Mobility Comments Pt in chair upon arrival, pt stood SBA, pt ambulated in fenton ~130ft with FWW/SBA using a step to gait pattern with breaks to relieve strain in upper shoulder. Pt took short break in chair before climbing platform stair in room. After demonstration pt was able to climb one platform step CGA with step to step and use of FWW. Pt required SBA with bed flat and use RLE to assist LLE onto bed. Pt performed knee theraputic exercises. Pt got up from bed with HOB elevated SBA and transferred to chair SBA. Pt was left in reclined chair with ice on knee, call light and all needs within reach. Gait Assessment Gait Gait Assistance Required: Standby Assistance Distance (Feet) 120 Able to Maintain Weight Bearing Status Yes During Gait Assistive Devices Assistive Device Gait Belt,Front Wheeled Walker Orthotic/Prosthetic Devices or Brace: No Gait Deviations General Gait Pattern Antalgic,Decreased Stride Length,Decreased Feet Clearance,Flexed Trunk,Step-to Gait Factors Limiting Gait Function Factors Limiting Gait Function Decreased Activity Tolerance, Decreased Strength,Limited Range of Motion,Pain,Poor Balance Comments Gait Comments See mobility comments Stair Climbing Assessment Evaluation Level of Assist On Stairs Contact Guard Assistance Devices Stair Climbing Assistive Devices Front Wheel Walker Technique/Endurance Stair Climbing Direction Ascend and Descend Stair Climbing Technique Step to Step Number of Steps Climbed 1 Stair Climbing Set # Repetitions (reps) 1 Comments Stair Climbing Comments Pt able to climb stairs requiring CGA and use of FWW on platform step. PT-Balance Assessment Sitting Balance and Reactions Static Sitting Balance Ability Normal Dynamic Sitting Balance Ability Normal Standing Balance and Reactions Static Standing Balance Ability Good Dynamic Standing Balance Ability Good Device Used FWW M5 PT-IP Objective Assessments Start: 01/11/20 15:43 Freq: NEEDED Status: Active Protocol: Document 01/11/20 16:26 AW (Rec: 01/11/20 16:41 AW [id number]) Orientation Orientation/Cognition Level of Alertness Alert Orientation Name,Day of Week,Place, Situation Language Function Ability No Deficits Noted Safety Awareness Understands Safety Issues Memory Description No Deficits Noted Comments Pt was sleepy but easily rousable and easily oriented to task. Gross Range of Motion Lower Extremity ROM Assessment Left Impaired Strength Lower Extremity Strength Assessment Left Impaired Comments Strength Comments RLE grossly 4/5; LLE 3/5 Coordination Assessment Gross Coordination Gross Coordination WNL Sensation Assessment Sensation Gross Sensation Left LE Impaired Comments Sensation Comments Pt reports chronic left anterior shank numbness Muscle Tone Muscle Tone WNL Yes M6 PT-IP Treatment Start: 01/11/20 15:43 Freq: NEEDED Status: Active Protocol: Document 01/12/20 09:03 CLB (Rec: 01/12/20 10:01 CLB [id number]) Physical Therapy Treatment Exercises Exercises Ankle Pumps,Gluteal Sets,Heel Slides,Straight Leg Raises, Short Arc Quads,Passive Knee Extension Hang Education Education Provided Precautions,Weight Bearing Status,Post-Op Packet,Safety M7 PT-IP Assessment and Plan Start: 01/11/20 15:43 Freq: NEEDED Status: Active Protocol: Document 01/12/20 09:03 CLB (Rec: 01/12/20 10:01 CLB [id number]) PT Summary Assessment and Plan Potential Rehabilitation Potential Excellent Status of Condition at Evaluation Evolving Summary Impairments Pain,ROM,Strength,Balance, Sensation,Bed Mobility, Transfers,Gait,Activity Tolerance Assessment Summary Pt is SBA for bed mobility, sit-stand and ambulation, pt required CGA for stair climbing. Pt is able to perform all knee theraputic exercises and has good understanding, pt encouraged to set OP PT appt. Pt seems able to d/c home with to assist when medically stable. Goals Bed Mobility Goal Independent Transfer Goal Standby Assistance,Front Wheeled Walker Gait Goal Standby Assistance,Front Wheel Walker Gait Distance 200 Other Goals up/down 2 steps with unilateral rail or SALES DEMONSTRATOR CGA Days to Meet Goals 3 Frequency of Treatment Frequency Of Treatment Twice a Day Treatment Plan Physical Therapy Treatment Plan Bed Mobility Training,Transfer Training,Gait Training, Therapeutic Exercise,Balance Retraining,Post Op Education, Discharge Planning,Hot or Cold Pack Recommendations To Nursing Amount of Assist Needed 1 Person Assist Discharge Recommendations PT Discharge Recommendations Home with Assistance, Outpatient PT Transportation Needs at Discharge Private Vehicle
--- NOTE | 2020-01-12 11:38 | CM.DANOTE ---
DCP: Case received, EMR reviewed and met with patient. Introduced self and role. Was able to meet with patient to obtain information regarding her baseline activity level prior to surgery, and living situation. DCP assessment completed with information currently available. Patient is a 74 year old female who admitted yesterday morning to the care of the orthopedic team. PCP: Dr. Salguero. Payer: Confirmed: Medicare/Operating Eng/Welfare & Pension. Patient came to the hospital for a surgical procedure. She had a left total knee replacement. Patient has also had a right total knee arthroplasty in the past. Patient has history of left knee osteoarthritis. Met with patient in her room. She was sitting up in her chair, alert and oriented, pleasant. Confirmed with patient that she resides in [place] with her spouse, Arthur. She stated, he will be helping me out when I go home. Patient is independent at baseline, has still been driving. She has a cane/walker, available for use, but has not needed to use prior. P: Patient will be working with P.T, prior to discharge, for she has discharge orders for home today. Kacy Lozano RN/Street Photographer
[2020-01-12 11:40] VITALS: BP 136/67; PULSE 72; RESP 18; TEMP 37.1; O2SAT 94
[2020-01-12 12:39] VITALS: BP 136/67
== END 2020-01-12 13:45 | disposition home or self-care (01) ==
LOC: OR 08:50 → AC 08:53
PROVIDERS: Family Provider Internal Medicine; PCP Internal Medicine; Referring Provider Orthopaedic Surgery; Visit Provider Orthopaedic Surgery
PROC: 0SRD0JZ Replacement of Left Knee Joint with Synthetic Substitute, Open Approach (ICD-10-PCS; CPT 27447; principal; 2020-01-11 10:45)
DX: M17.12 Unilateral primary osteoarthritis, left knee (principal); I10 Essential (primary) hypertension; E11.9 Type 2 diabetes mellitus without complications; G47.33 Obstructive sleep apnea (adult) (pediatric); Z79.84 Long term (current) use of oral hypoglycemic drugs; Z79.01 Long term (current) use of anticoagulants
CPT/HCPCS: 27447; 36415; 73560; 82962; 85014; 85018; 97110; 97116; 97161; 97530; C1776; C9290; J2250; J2274; J2405; J2704; J3010

== ENCOUNTER → 2020-01-19 14:32 | Outpatient (CLI) | payer MEDICARE, OTHER, SELFPAY ==
[2020-01-11 09:04] VITALS: BMI 35.5
--- NOTE | 2020-01-19 | DI.US.S_ITS ---
PROCEDURE: US PERIPH VENOUS LOW EXTREM LT INDICATIONS: DVT TECHNIQUE: Real-time imaging, as well as color and pulse Doppler interrogation, were performed of the lower extremity deep veins from the inguinal ligament to the popliteal fossa. COMPARISON: None. FINDINGS: The common femoral, femoral and popliteal veins are normally compressible, and free of intraluminal thrombus. Color and pulse Doppler demonstrate normal phasic intraluminal flow. There is normal augmentation response to distal compression maneuver. There is a 3.4 x 1.0 x 2.6 cm complex fluid collection within the left popliteal fossa. IMPRESSION: 1. No deep vein thrombosis of the left lower extremity. 2. Left Miramontes's cyst. Dictated by: Tiffanie Saravia M.D. on 01/19/2020 at 16:05 Approved by: Tiffanie Saravia M.D. on 01/19/2020 at 16:06
== END ==
PROVIDERS: Family Provider Internal Medicine; PCP Internal Medicine; Referring Provider Orthopaedic Surgery; Visit Provider Orthopaedic Surgery
DX: I82.402 Acute embolism and thrombosis of unspecified deep veins of left lower extremity (principal); M71.22 Synovial cyst of popliteal space [Baker], left knee
CPT/HCPCS: 93971